=== PATIENT | male | born 1995 | race American Indian/Alaskan Native ===

== ENCOUNTER 2017-03-26 17:38 | Emergency (ER) | payer OTHER ==
[2017-03-26 22:33] VITALS: BP 122/64
[2017-03-26] MEDS ORDERED: FLEXERIL PO ONE (22:49)
[2017-03-26] MEDS ORDERED: NORCO 5/325 PO ONE (22:49)
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
== END 2017-03-26 23:47 | disposition home or self-care (01) ==
LOC: ED 17:38
DX: S13.4XXA Sprain of ligaments of cervical spine, initial encounter (principal); M25.511 Pain in right shoulder; V49.59XA Passenger injured in collision with other motor vehicles in traffic accident, initial encounter; X58.XXXA Exposure to other specified factors, initial encounter; Y93.89 Activity, other specified; Y92.89 Other specified places as the place of occurrence of the external cause; Y99.8 Other external cause status
CPT/HCPCS: 99282